=== PATIENT | male | born 1990 | race Caucasian/White ===

== ENCOUNTER 2019-09-09 14:57 | Emergency (ER) | payer OTHER ==
--- NOTE | 2019-09-09 15:18 | ERPHSYRPT ---
- History of Present Illness Time Seen by Provider: 09/09/19 15:17 Source: patient Exam Limitations: no limitations Physician History: The patient is a 29-year-old male with a past medical significant for anxiety depression presents with a chief complaint of left flank pain. Onset reported was around 8:00 this morning and started suddenly while he was at work. The pain is described as a sharp pain that radiates to his left lower quadrant in addition to his left testicle. The pain is currently constant and moderate to severe in severity. He denies history of kidney stones, dysuria, hematuria, increasing or frequency , bladder pressure, nausea, vomiting as well as fever and chills. He reportedly took some [id number] pain medication prior to arrival with no relief. He was accompanied emergency department by his aunt who provided details pertaining to his medical history in addition to current medications. Denies any traumatic injury as well as recent fall. He denies having any lower extremity symptoms to include weakness, numbness and paresthesias. Denies diarrhea constipation. Associated Symptoms: abdominal pain, No nausea, No vomiting, No cough, No chest pain, No fever, No syncope Allergies/Adverse Reactions: diphenhydramine [From Benadryl] Allergy (Verified 09/09/19 15:59) meperidine [From Demerol] Allergy (Verified 09/09/19 15:59) Penicillins Allergy (Verified 09/09/19 15:59) - Review of Systems Constitutional: Fever, Fatigue, Night Sweats, Weight Loss, No Chills Respiratory: No Cough Cardiac: No Chest Pain Abdominal/Gastrointestinal: Abdominal Pain, No Nausea, No Vomiting, No Diarrhea , No Constipation, No Hematemesis Genitourinary Symptoms: Flank Pain, Testicle Pain, No Dysuria, No Frequency, No Hematuria, No Hesitancy, No Urgency, No Urinary Retention, No Penile Discharge Skin: No Symptoms Neurological: No Symptoms Psychological: No Symptoms Endocrine: No Symptoms Hematologic/Lymphatic: No Symptoms Immunological/Allergic: No Symptoms All Other Systems: Reviewed and Negative - Nursing Vital Signs Nursing Vital Signs: Initial Vital Signs Temperature 97.4 F 09/09/19 15:22 Pulse Rate 63 09/09/19 15:22 Respiratory Rate 18 09/09/19 15:22 Blood Pressure 148/88 09/09/19 15:22 O2 Sat by Pulse Oximetry 100 09/09/19 15:22 Pain Scale Pain Intensity 6 - Physical Exam General Appearance: no apparent distress, alert Eye Exam: PERRL/EOMI, No photophobia, No EOM palsy/anisocoria Ears, Nose, Throat Exam: normal ENT inspection, No pharynx normal, No TM abnormal (R), No TM abnormal (L), No pharyngeal erythema, No tonsillar exudate Neck Exam: normal inspection, non-tender, supple Respiratory Exam: normal breath sounds, lungs clear, airway intact, No chest tenderness, No respiratory distress Cardiovascular Exam: regular rate/rhythm, normal heart sounds, normal peripheral pulses, capillary refill <2 sec, No murmur, No friction rub, No gallop, No tachycardia, No edema Gastrointestinal/Abdomen Exam: soft, tenderness (LLQ tenderness) Male Genitalia Exam: normal genitalia, other (No testicular swelling, tenderness , or increased warmth. No evidence of testicular torsion), No testicular tenderness, No testicular mass, No penile discharge Rectal Exam: deferred Back Exam: normal inspection, CVA tenderness (Left CVA tenderness), other (No evidence of flank ecchymosis ) Extremity Exam: normal inspection Neurologic Exam: alert, oriented x 3 Skin Exam: normal color, warm, dry, rash, No petechiae, No jaundice Lymphatic Exam: No adenopathy SpO2 Interpretation: normal O2 Delivery: Room Air - Radiology Exams Chest X-ray Interpretation: Interpreted by me, Reviewed by me, Negative - CT Exams Abdomen/Pelvis CT Interpretation: Other (CT scan showing no evidence of renal calculus or evidence of obstructive uropathy. There is a large left periaortic noncalcified soft tissue mass worrisome for lymphadenopathy. Rule out primary versus metastatic malignancy. Splenomegaly.) Ordered Tests: Active Orders 24 hr Category Date Time Status IV Insertion STAT Care 09/09/19 15:38 Active ABDOMEN AND PELVIS W/0 CONTRAS [CT] Stat Exams 09/09/19 15:40 Completed CHEST 2 VIEWS (PA AND LAT) Stat Exams 09/09/19 17:04 Taken BMP Stat Lab 09/09/19 15:50 Completed CBC W DIFF Stat Lab 09/09/19 15:50 Completed LDH-LACTATE DEHYDROGENASE Stat Lab 09/09/19 16:59 Completed UA W/RFX UR CULTURE Stat Lab 09/09/19 Completed Medication Summary Discontinued Medications Generic Name Dose Route Start Last Admin Trade Name Kaley PRN Reason Stop Dose Admin Hydrocodone Bitart/Acetaminophen 2 tab 09/09/19 17:52 09/09/19 18:04 [place] 5/325 Mg PO 09/09/19 17:53 2 tab STAT ONE Administration Hydrocodone Bitart/Acetaminophen Confirm 09/09/19 17:58 [place] 5/325 Mg Administered 09/09/19 17:59 Dose 2 tab .ROUTE .STK-MED ONE Ketorolac Tromethamine 15 mg 09/09/19 15:38 09/09/19 15:59 Toradol 30 Mg Injection IV 09/09/19 15:39 15 mg STAT ONE Administration Ketorolac Tromethamine Confirm 09/09/19 15:54 Toradol 30 Mg Injection Administered 09/09/19 15:55 Dose 30 mg .ROUTE .STK-MED ONE Morphine Sulfate 4 mg 09/09/19 15:38 09/09/19 16:01 Morphine Sulfate 4 Mg Inj IV 09/09/19 15:39 4 mg STAT ONE Administration Morphine Sulfate Confirm 09/09/19 15:54 Morphine Sulfate 4 Mg Inj Administered 09/09/19 15:55 Dose 4 mg .ROUTE .STK-MED ONE Ondansetron HCl 4 mg 09/09/19 15:38 09/09/19 16:06 Zofran Odt 4 Mg PO 09/09/19 15:39 Not Given STAT ONE Ondansetron HCl Confirm 09/09/19 15:54 Zofran 4 Mg/2 Ml Vial Administered 09/09/19 15:55 Dose 4 mg .ROUTE .STK-MED ONE Ondansetron HCl 4 mg 09/09/19 16:05 09/09/19 16:19 Zofran 4 Mg/2 Ml Vial IV 09/09/19 16:06 4 mg STAT ONE Administration Lab/Rad Data: Laboratory Result Diagrams 09/09/19 15:50 09/09/19 15:50 Laboratory Results 09/09/19 09/09/19 09/09/19 Range/Units Unknown 16:59 15:50 WBC (4.0-10.5) K/mm3 RBC (4.1-5.6) M/mm3 Hgb (12.5-18.0) gm/dl Hct (42-50) % MCV (78-100) fl MCH (26-32) pg MCHC (32-36) g/dl RDW (11.5-14.0) % Plt Count (150-450) K/mm3 MPV (7.5-11.0) fl Gran % (36.0-66.0) % Eos # (Auto) (0-0.5) Absolute Lymphs (auto) (1.0-4.6) Absolute Monos (auto) (0.0-1.3) Lymphocytes % (24.0-44.0) % Monocytes % (0.0-12.0) % Eosinophils % (0.00-5.0) % Basophils % (0.0-0.4) % Absolute Granulocytes (1.4-6.9) Basophils # (0-0.4) Sodium 139 (137-145) mmol/L Potassium 3.6 (3.5-5.1) mmol/L Chloride 106 (98-107) mmol/L Carbon Dioxide 24 (22-30) mmol/L Anion Gap 12.2 (5-15) MEQ/L BUN 11 (9-20) mg/dL Creatinine 0.85 (0.66-1.25) mg/dL Estimated GFR > 60.0 ML/MIN Glucose 106 (74-106) mg/dL Calcium 9.8 (8.4-10.2) mg/dL Lactate Dehydrogenase 255 H (120-246) U/L Urine Color YELLOW (YELLOW) Urine Appearance CLEAR (CLEAR) Urine pH 8.0 (5-6) Ur Specific [place] 1.019 (1.005-1.025) Urine Protein NEGATIVE (Negative) Urine Ketones NEGATIVE (NEGATIVE) Urine Blood NEGATIVE (0-5) Dan[place]/ul Urine Nitrite NEGATIVE (NEGATIVE) Urine Bilirubin NEGATIVE (NEGATIVE) Urine Urobilinogen NEGATIVE (0-1) mg/dL Ur Leukocyte Esterase NEGATIVE (NEGATIVE) Urine WBC (Auto) NONE (0-5) /HPF Urine RBC (Auto) NONE (0-2) /HPF U Epithel Cells (Auto) NONE (FEW) /HPF Urine Bacteria (Auto) NONE (NEGATIVE) /HPF Urine Mucus (Auto) SLIGHT (NEGATIVE) /HPF Urine Culture Reflexed NO (NO) Urine Glucose NEGATIVE (NEGATIVE) mg/dL 09/09/19 Range/Units 15:50 WBC 10.7 H (4.0-10.5) K/mm3 RBC 4.54 (4.1-5.6) M/mm3 Hgb 14.4 (12.5-18.0) gm/dl Hct 41.0 L (42-50) % MCV 90.3 (78-100) fl MCH 31.7 (26-32) pg MCHC 35.1 (32-36) g/dl RDW 13.0 (11.5-14.0) % Plt Count 166 (150-450) K/mm3 MPV 10.4 (7.5-11.0) fl Gran % 79.0 H (36.0-66.0) % Eos # (Auto) 0.09 (0-0.5) Absolute Lymphs (auto) 1.64 (1.0-4.6) Absolute Monos (auto) 0.51 (0.0-1.3) Lymphocytes % 15.3 L (24.0-44.0) % Monocytes % 4.8 (0.0-12.0) % Eosinophils % 0.8 (0.00-5.0) % Basophils % 0.1 (0.0-0.4) % Absolute Granulocytes 8.46 H (1.4-6.9) Basophils # 0.01 (0-0.4) Sodium (137-145) mmol/L Potassium (3.5-5.1) mmol/L Chloride (98-107) mmol/L Carbon Dioxide (22-30) mmol/L Anion Gap (5-15) MEQ/L BUN (9-20) mg/dL Creatinine (0.66-1.25) mg/dL Estimated GFR ML/MIN Glucose (74-106) mg/dL Calcium (8.4-10.2) mg/dL Lactate Dehydrogenase (120-246) U/L Urine Color (YELLOW) Urine Appearance (CLEAR) Urine pH (5-6) Ur Specific [place] (1.005-1.025) Urine Protein (Negative) Urine Ketones (NEGATIVE) Urine Blood (0-5) Danis/ul Urine Nitrite (NEGATIVE) Urine Bilirubin (NEGATIVE) Urine Urobilinogen (0-1) mg/dL Ur Leukocyte Esterase (NEGATIVE) Urine WBC (Auto) (0-5) /HPF Urine RBC (Auto) (0-2) /HPF U Epithel Cells (Auto) (FEW) /HPF Urine Bacteria (Auto) (NEGATIVE) /HPF Urine Mucus (Auto) (NEGATIVE) /HPF Urine Culture Reflexed (NO) Urine Glucose (NEGATIVE) mg/dL - Progress Progress: improved Progress Note: 09/09/19 16:50 CT reviewed by me and there appears to be no acute intra-abdominal pathology, specifically with no evidence of hydronephrosis or obstructing kidney stone. Early awaiting formal radiology review. 09/09/19 17:[address] Barajas, oncology at [facility], the case with her. She recommended having the patient follow-up within the next 1 to 2 days with her and provided her clinic number in addition to her cell phone number for the patient to call. She also took the patient's phone number and demographics so she could call to schedule an outpatient appointment in the next 1 to 2 days. She agreed with management thus far and is also concerned the patient may have lymphoma and need additional work-up to have this ruled out. Informed to the patient CT findings consistent with what appears to be a large lymph node and splenomegaly. 09/09/19 21:13 Nontoxic appearance. Labs, chest x-ray and CT were reviewed. He had no significant adenopathy on my exam. Upon further questioning, the patient endorsed having night sweats and feeling hot and feverish for the past year and reportedly has to keep the window open at night to keep him cold off for the past year. He states if he does not do this he will sweat through the night and soaked through his sheets. He also endorsed having a 50 pound weight loss that was unpurposeful in the last year. 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 I informed the patient of his periaortic mass which is likely an enlarged lymph node concerning for possible lymphoma and the fact that he will need urgent patient follow-up with oncology as noted above. He was given the number to the oncologist and instructed to call first thing in the morning and was also told that the oncologist was going to reach out to him as well and to expect a phone call from her and to follow- up as instructed. I did speak to the radiologist in terms of seeing if it was recommended to have a repeat CT scan contrast and Dr. Rivera recommended against this given that it would not change his CT read or add to the diagnostic utility of the CT at this time. Discussed with DrOrly: Other (Dr. Barajas, oncology) Counseled pt/family regarding: lab results, diagnosis, need for follow-up, rad results - Departure Departure Disposition: Home Clinical Impression: Periaortic lymphadenopathy, Periaortic mass, Splenomegaly, Abdominal pain Condition: Fair Critical Care Time: No Referrals: RADHA ANDRADE PA [Primary Care Provider] - Instructions: Acute Abdomen (Belly Pain) Additional Instructions: Follow-up with Dr. Barajas, oncology, [facility]. Please call her office first thing in the morning to confirm your appointment which would likely need to be scheduled in the next 1 to 2 days. The number to her office is . Cell phone number is also . Should also be expecting a phone call from this position in the morning to confirm your appointment. Prescriptions: Hydrocodone/APAP 5-325 Tab^^^ [[place] 5-325 Tablet^^^] 1 tab PO Q6HPRN PRN #10 tablet MDD 6 PRN Reason: Pain
[2019-09-09] MEDS ORDERED: MORPHINE SULFATE 4 MG INJ IV ONE (15:38)
[2019-09-09] MEDS ORDERED: TORAdol 30 mg Injection IV ONE (15:38)
[2019-09-09] MEDS ORDERED: ZOFRAN ODT 4 MG PO ONE (15:38)
[2019-09-09] MEDS ORDERED: MORPHINE SULFATE 4 MG INJ ONE (15:54)
[2019-09-09] MEDS ORDERED: TORAdol 30 mg Injection ONE (15:54)
[2019-09-09] MEDS ORDERED: Zofran 4 MG/2 ML VIAL ONE (15:54)
[2019-09-09 15:58] LABS: Absolute Neutrophil Ct (ANC) 8.46 (1.4-6.9); BASOPHIL % 0.1 % (0.0-0.4); Basophil (Absolute #) 0.01 (0-0.4); Eosinophil % 0.8 % (0.00-5.0); Eosinophil (Absolute #) 0.09 (0-0.5); Hemoglobin 14.4 gm/dl (12.5-18.0); Lymphocyte (Absolute #) 1.64 (1.0-4.6); Lymphocytes % 15.3 % (24.0-44.0); Mean Cell Volume 90.3 fl (78-100); Mean Corpuscular Hemoglobin 31.7 pg (26-32); Mean Corpuscular Hgb Concent. 35.1 g/dl (32-36); Mean Platelet Volume 10.4 fl (7.5-11.0); Monocyte (Absolute #) 0.51 (0.0-1.3); Monocytes % 4.8 % (0.0-12.0); Platelet Count 166 K/mm3 (150-450); Red Blood Count 4.54 M/mm3 (4.1-5.6); White Blood Count 10.7 K/mm3 (4.0-10.5)
[2019-09-09] MEDS ORDERED: Zofran 4 MG/2 ML VIAL IV ONE (16:05)
[2019-09-09 16:10] LABS: ANION GAP 12.2 MEQ/L (5-15); BLOOD UREA NITROGEN 11 mg/dL (9-20); CHLORIDE 106 mmol/L (98-107); Calcium 9.8 mg/dL (8.4-10.2); Carbon Dioxide 24 mmol/L (22-30); Creatinine 1 0.85 mg/dL (0.66-1.25); Glucose 106 mg/dL (74-106); Potassium 3.6 mmol/L (3.5-5.1); SODIUM 139 mmol/L (137-145)
[2019-09-09 16:48] LABS: Appearance CLEAR (CLEAR); Bilirubin NEGATIVE (NEGATIVE); Blood NEGATIVE Ery/ul (0-5); Glucose NEGATIVE (NEGATIVE); Ketones NEGATIVE (NEGATIVE); Leukocyte Esterase NEGATIVE (NEGATIVE); Mucus SLIGHT /HPF (NEGATIVE); Nitrite NEGATIVE (NEGATIVE); Protein,Urine Dip NEGATIVE (Negative); Specific Gravity 1.019 (1.005-1.025); Urobilinogen NEGATIVE mg/dL (0-1)
--- NOTE | 2019-09-09 16:56 | XRAY ---
Indication: Left flank pain. Multiple contiguous axial images obtained through the abdomen and pelvis without contrast using renal stone protocol. Comparison: None Lung bases are clear. Heart is not enlarged. No renal calculus or evidence for obstructive uropathy in either system. There is a left periaortic noncalcified soft tissue mass measuring 4.4 x 5.0 x 10.3 cm in greatest AP, transverse, and CC projections respectively probably lymphadenopathy. Noncontrasted stomach and bowel loops appear nonobstructed. Normal appendix. No free fluid/air. Spleen is enlarged measuring 14.4 cm in CC dimension. Remaining liver, gallbladder, pancreas, spleen, adrenal glands, kidneys, ureters, bladder, and aorta appear unremarkable for noncontrast exam. Osseous structures intact. Impression: 1. Negative renal calculus or evidence for obstructive uropathy. 2. Large left periaortic noncalcified soft tissue mass worrisome for lymphadenopathy. Rule out primary versus metastatic malignancy. 3. Splenomegaly.
[2019-09-09 17:03] VITALS: PULSE 64
[2019-09-09] MEDS ORDERED: NORCO 5/325 MG PO ONE (17:52)
[2019-09-09] MEDS ORDERED: NORCO 5/325 MG ONE (17:58)
[2019-09-09 18:24] VITALS: BP 134/93; O2SAT 100
--- NOTE | 2019-09-10 08:48 | XRAY ---
Indication: Abnormal CT abdomen/pelvis with periaortic soft tissue mass. Comparison: None PA/lateral chest inflated and clear. Heart and mediastinal structures within normal limits. Bony thorax intact. Impression: Nonacute chest.
== END 2019-09-09 18:25 | disposition home or self-care (01) ==
LOC: ED 14:57
DX: R59.9 Enlarged lymph nodes, unspecified (principal)
CPT/HCPCS: 36000; 36415; 71046; 74176; 80048; 81001; 83615; 85025; 96374; 96375; 99284; J1885; J2270; J2405; A9270-GY